=== PATIENT | female | born 1985 | race Caucasian/White ===

== ENCOUNTER 2017-08-30 01:22 | Inpatient (IN) | payer BC ==
[2017-08-30] MEDS: Lactated Ringers 1,000 ML IV SCH ×3 (01:43→03:55)
[2017-08-30] MEDS ORDERED: Bupivacaine 0.75%/D5W 2 ML Amp ONE ×2 (01:59→11:40)
[2017-08-30] MEDS ORDERED: Tranexamic Acid 1,000 MG in Sodium Chloride 0.9% 100 ML IV PRN (02:00)
[2017-08-30] MEDS ORDERED: Lidocaine 1% 30 ML SDV INJECT PRN (02:00)
[2017-08-30] MEDS ORDERED: Carboprost Tromethamine 250 MCG/1 ML Amp IM PRN (02:00)
[2017-08-30] MEDS ORDERED: Ondansetron 4 MG/2 ML SDV IV PRN (02:00)
[2017-08-30] MEDS ORDERED: EPINEPHrine 1 MG/ML SDV ONE (02:00)
[2017-08-30] MEDS ORDERED: Sodium Chloride 0.9% 10 ML Syringe FLUSH PRN (02:00)
[2017-08-30] MEDS ORDERED: Acetaminophen 325 MG Tab PO PRN (02:00)
[2017-08-30] MEDS ORDERED: Methylergonovine 0.2 MG/1 ML Amp IM PRN (02:00)
[2017-08-30] MEDS ORDERED: Lactated Ringers 500 ML IV ONE (02:00)
[2017-08-30] MEDS ORDERED: Misoprostol 400 MCG (4 X 100 MCG TAB) RECTAL PRN (02:00)
[2017-08-30] MEDS ORDERED: fentaNYL 100 MCG/2 ML SDV ONE (02:00)
[2017-08-30] MEDS ORDERED: Oxytocin/Normal Saline 30 UNIT/500 ML BAG IV SCH (02:15)
--- NOTE | 2017-08-30 02:59 | PCM.PRNOTE ---
- Free Text/Narrative Note: Requested to provide analgesia to full term patient in severe pain with advanced dilation. Upon entering the room, patient is supine in bed complaining of severe abdominal/pelvic pain and discomfort. Procedure was discussed with patient including adverse outcomes and expectations. Pt consented to analgesia, SAB/IT. Pt placed into a sitting position. Landmarks for SAB/IT were identified and marked. Hands were washed and appropriate PPE was applied. Back was prepped with betadine x3. A sterile, transparent, fenestrated drape was applied. Excess betadine was removed. Using 3 mL of a 1% lidocaine solution, a skin wheel was placed at the L3/L4 interspace. A 24 ga ( 4 inch) Pencan spinal needle was inserted until positive for CSF. Negative for heme or paresthesias. Injected fentanyl 20 mcg, sufentanil 10 mcg, and 9 mg of a 0.75% bupivacaine solution with an epi wash. Pt was placed left lateral position for approximately 20 minutes. There were zero complications or adverse outcomes during IT. Will continue to monitor. Procedure Date & Time: 08/30/17 [id number]
[2017-08-30] MEDS ORDERED: Ibuprofen 800 MG Tab PO PRN (03:28)
[2017-08-30] MEDS ORDERED: Benzocaine/Menthol 20%-0.5% Spray 56 GM Canister TOP PRN ×2 (03:29→05:01)
[2017-08-30] MEDS ORDERED: Measles, Mumps & Rubella Vaccine 0.5 ML SDV SUBCUT ONE (05:01)
[2017-08-30] MEDS ORDERED: ceFAZolin 2 GM in Premix Bag 1 BAG IV ONE (05:30)
--- NOTE | 2017-08-30 06:44 | HP ---
CHIEF COMPLAINT: Regular contractions, believe she is in labor. HISTORY OF PRESENT ILLNESS: The patient is a 31-year-old, 2, para 1-0-0- 1, who reports increased force and frequency of contractions throughout the evening and shortly after midnight decided that she needed to come into the hospital for labor, had been 3.5 cm dilated in the office today. She reports contractions started about that time and just steadily worsened into the evening. No leakage of fluid or vaginal bleeding. movement has been good. Denies any new concerns or problems. OBSTETRICAL HISTORY: A 39 and 4/7 weeks' gestation based on the last menstrual period of 11/26/2016 and a working due date of 09/02/2017. These dates are consistent with her 21-week and 35-week ultrasounds. The anatomy ultrasound was overall normal with posterior placenta. A 35-week ultrasound was done for size, and at that time, PATRICIA of 12.71, estimated weight 3008 g, 85th percentile for weight. Prior delivered on 07/18/2013, 40 weeks 4 days' gestation, female , spontaneously, named Gila, her weight 3204 g, under epidural anesthesia after 8 hours of labor, pushed for about 45 minutes. Reports labor went quickly after artificial rupture of membranes. The patient had been 6 cm dilated at her clinic visit earlier that day and was sent over to the hospital. Delivery was at [facility] and the provider was nurse city planning aide, first named, Trixie. LABORATORY DATA: Blood type A positive. Antibody screen negative. Rubella nonimmune. Syphilis serology nonreactive. Hepatitis B negative. HIV negative. Gonorrhea and Chlamydia negative. Thyroid 1.39. Hepatitis C nonreactive. Wet prep positive for clue cells and treated with metronidazole. One-hour glucose tolerance test of 129. Quad screen declined. She is group B strep negative. PAST MEDICAL HISTORY: Chickenpox as a child. Puberty at age 15 with menses every 30 to 35 days and flow of 6 days. PAST SURGICAL HISTORY: Laparoscopic appendectomy in August of 2013. FAMILY HISTORY: Father with hypertension. Maternal grandfather with lung cancer and reports that he was a smoker at a young age, but he quit 10 years prior to his diagnosis. Paternal grandmother has Alzheimer's. Paternal grandfather has heart disease. There are cousins who are twins, and the great grandfather is a twin as well. Otherwise, family history is negative, specifically negative for anesthesia problems, bleeding or clotting disorders, cystic fibrosis, defects, and seizures. SOCIAL HISTORY: The patient is technically single. 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 Has 1 daughter named Gila. They do not have any pets. Father of this baby is, Lenny Gonzalez. He is a fernandes and reportedly healthy. This is the new father of the baby than her first daughter. MEDICATIONS: 1. vitamin 1 daily. 2. Iron 325 mg twice daily. ALLERGIES: No known drug allergies. REVIEW OF SYSTEMS: Denies any headaches, blurry vision, chest pain, shortness of breath, fever, chills, nausea, vomiting, diarrhea, constipation. No other acute concerns. PHYSICAL EXAMINATION: General: Healthy, well-appearing 31-year-old female, now status post intrathecal that was performed just before I came in the room. Vital Signs: Initial blood pressure 114/79, pulse of 67, afebrile, respiratory rate normal. HEENT: Grossly unremarkable. Neck: Supple without adenopathy. Heart: Regular without murmur. Lungs: Clear to auscultation bilaterally. Abdomen: Soft and nontender. Pelvic: [place] shows contractions approximately every 2 minutes. heart rate is a baseline of 125 beats per minute at baseline. Moderate akcw-gx-aiol variability with accelerations noted. Cervical exam per nursing staff is 8 cm dilated, 90% effaced, -1 station with a bulging bag of water that was intact. Extremities: Trace edema bilaterally. LABORATORY DATA: Hemoglobin 12.7 and platelets 167. ASSESSMENT: 1. A 39 and 4/7 weeks' intrauterine based on last menstrual period. 2. 2, para 1-0-0-1. 3. Blood type A positive, rubella nonimmune, group B streptococcus negative. 4. Anemia of . 5. History of bacterial vaginosis in the first trimester. PLAN: The patient is comfortable with her intrathecal at this time. Anticipate that she will continue to progress nicely through labor and hopefully be able to labor down and reduce the amount of time that she will need to spend pushing. Expectant management for now. We can also perform artificial rupture of membranes if needed. The patient's questions have been answered. [facility] /[id number]
--- NOTE | 2017-08-30 08:34 | DEL ---
DATE: 08/30/2017 PRE-PROCEDURE DIAGNOSES: 1. A 39 and 4/7 weeks' intrauterine by last menstrual period. 2. Blood type A positive, rubella nonimmune, group B Streptococcus negative. 3. Anemia of . 4. bradycardia post intrathecal. POST-PROCEDURE DIAGNOSES: 1. A 39 and 4/7 weeks' intrauterine by last menstrual period. 2. Blood type A positive, rubella nonimmune, group B Streptococcus negative. 3. Anemia of . 4. bradycardia post intrathecal. 5. Successful vacuum-assisted vaginal delivery of a viable male . 6. Status post episiotomy with fourth-degree extension and repair. 7. Delivery of macrosomic infant. PROCEDURE PERFORMED: High vacuum-assisted vaginal delivery with likely second- degree episiotomy with fourth-degree extension, requiring repair. BRIEF COURSE: A 31-year-old female with the above-listed diagnoses, had presented to the hospital having had contractions essentially throughout the afternoon and evening that were stronger and closer together. She was 8 cm dilated, 90% effaced, and -1 station upon presentation, had an excellent category 1 monitoring strip erick every minute and a half to two minutes. She had an intrathecal placed and had her pain very well controlled and was resting on her left side. Blood pressures were doing pretty well after the intrathecal with last noted blood pressure 111/71 and then the baby developed deceleration down into the 90s with continued contractions and deceleration eventually trended down to the 60s. At which time, she was complete and had spontaneous rupture of membranes. I was called to the room, and immediately, we set the patient up for delivery and had her start pushing. The vacuum was also called for because pushing efforts were not going to be sufficient to deliver the baby quick enough given the heart rate staying down in the 60s. Operating room crew was also called in, and the patient quickly consented for potential emergency section because of the distress without known cause. As soon as the patient was set up for vacuum, it had been explained to her that she would have increased risk of an injury to her and the baby including vaginal lacerations and tears, increased risk of infection, increased risk of scalp lacerations and other complications for the baby, increased risk of shoulder dystocia, and further need for emergency delivery. She agreed to proceed and at that time, vacuum-assisted delivery was felt to be the most efficient. The bladder had last been emptied shortly after arrival at the hospital. Therefore, a Chase indwelling catheter was quickly placed, and normal mushroom cap vacuum was applied and used for 1 contraction, however, had leakage of the seal. Therefore, a different vacuum was called for, and contractions seemed to be spacing for whatever reasons. The Pitocin was turned on at 6, and the low-profile vacuum was applied. This was used through 3 contractions and ultimately on for successful vaginal delivery between pushes. Baby was confirmed to be in OA position prior to application of the vacuum. The pressure was held in the yellow zone between contractions and in the green zone during pulls with the manometry being used to make sure that we avoided being in the red zone. With those pulls and contractions after delivery of the head, the shoulders were not forthcoming. The patient was placed in McRobert position as I continued to attempt and locate the posterior arm for delivery. We had performed a couple of attempts at corkscrew maneuvers. Nurse was also applying suprapubic pressure, and we both agreed that the baby's shoulders were in transverse position despite the head having been delivered in the RICHARDSON position. Eventually after the episiotomy was cut, we were able to continue to attempt the suprapubic pressure as well as internal maneuvers, ultimately delivering the anterior shoulder and then the posterior shoulder followed by the remainder of the . PROCEDURE DETAILS: The patient in dorsal lithotomy position, delivered a viable male over a second-degree episiotomy with fourth-degree extension. Three- vessel umbilical cord was singly clamped and then cut and baby taken over to the warmer for immediate resuscitation. Nurse collected cord blood sample while I attended to the baby initially, and once we had spontaneous respirations and color was returning, the baby was left in the care of the nurse practice assistant and another OB nurse while I returned to the perineum and the placenta was delivered, inspected, and intact. This was performed by gentle cord traction and concomitant uterine massage. The labia and vagina were inspected and fourth- degree laceration confirmed. Laceration repaired by using 3-0 Vicryl and placing a running stitch through the rectal to a posterior vaginal mucosa all the way to the keratinized skin level. I then placed 2 stitches through the bulbocavernosus muscle to bring that together and then used 2 interrupted stitches in the rectal sphincter muscle to reapproximate those in the midline. The vaginal repair was then closed as a second degree in the usual fashion with a 3-0 Vicryl, and this came together nicely. There was also an associated left-sided labial skin split that seemed to follow the line right between the keratinized and the mucosal tissue. This was closed with a running subcuticular stitch of 4-0 Monocryl and it came together with good cosmetic result, and the patient tolerated all of this well without any additional lidocaine. Chase catheter was left in place during this time as it had been placed with anticipation of needing to proceed to emergency . Bleeding had been well controlled. The patient tolerated the procedure well as her intrathecal had only been placed 15 minutes or so prior to delivery. Total time the baby's heart tones were down in the 90s and then 60s was approximately 15 minutes. Total vacuum application time approximately 5 minutes pulling through a total of about 4 contractions. COMPLICATIONS: Shoulder dystocia with fourth-degree laceration requiring repair, actually managed quite well with excellent nursing available. Baby resuscitation was well managed by nursing staff, RADIO STATION AUDIO ENGINEER and Dr. Stanley's arrival within the first couple of minutes of life to assist with the baby's cares. ESTIMATED BLOOD LOSS: 500 mL. OTHER CONCERNS: None. [facility] /[id number]
[2017-08-30] MEDS ORDERED: fentaNYL 100 MCG/2 ML SDV ITHECAL ONE (11:40)
[2017-08-30] MEDS: Prenatal Multivitamin with Calcium/Folic Acid/Iron Tab PO SCH (12:10)
[2017-08-30] MEDS: Ibuprofen 800 MG Tab PO PRN ×2 (12:11→19:39)
[2017-08-30] MEDS: Docusate Sodium 100 MG Cap PO PRN ×2 (12:11→19:38)
[2017-08-30] MEDS: Acetaminophen/HYDROcodone 325-10 MG Tab PO PRN ×3 (15:27→23:47)
[2017-08-30] MEDS: Simethicone 80 MG Tab.Chew PO PRN (20:50)
[2017-08-31] MEDS: Acetaminophen/HYDROcodone 325-10 MG Tab PO PRN ×4 (04:02→22:41)
[2017-08-31] MEDS: Docusate Sodium 100 MG Cap PO PRN ×2 (08:20→22:39)
[2017-08-31] MEDS: Simethicone 80 MG Tab.Chew PO PRN ×2 (08:20→22:39)
[2017-08-31] MEDS: Prenatal Multivitamin with Calcium/Folic Acid/Iron Tab PO SCH (08:20)
[2017-08-31] MEDS: Ibuprofen 800 MG Tab PO PRN ×2 (13:32→22:42)
[2017-09-01] MEDS: Ibuprofen 800 MG Tab PO PRN (08:29)
[2017-09-01] MEDS: Simethicone 80 MG Tab.Chew PO PRN (08:29)
[2017-09-01] MEDS: Prenatal Multivitamin with Calcium/Folic Acid/Iron Tab PO SCH (08:29)
[2017-09-01] MEDS: Docusate Sodium 100 MG Cap PO PRN (08:30)
--- NOTE | 2017-09-01 11:05 | DISCH ---
ADMIT DIAGNOSES: 1. A 39 and 4/7 weeks' intrauterine based on last menstrual period of 11/26/2017. 2. 2, para 1-0-0-1. 3. Blood type A positive. Rubella not immune, GBS negative. 4. Anemia of . 5. History of bacterial vaginosis in the first trimester, treated. DISCHARGE DIAGNOSES: 1. A 39 and 4/7 weeks' intrauterine based on last menstrual period of 11/26/2017, delivered via spontaneous vaginal delivery. 2. 2, para 2-0-0-2. 3. Blood type A positive. Rubella not immune, GBS negative. 4. Anemia of , last hemoglobin 10.0. 5. History of bacterial vaginosis in the first trimester, treated. 6. bradycardia, post intrathecal. 7. Successful high vacuum-assisted vaginal delivery of a viable male . 8. Status post episiotomy with fourth degree extension, repaired. 9. Delivery of macrosomic infant. 10.Two minute shoulder dystocia BRIEF HISTORY: The patient is a 31-year-old female, now G2, P2-0-0-2, admitted at 39 and 4/7 weeks' gestation due to regular contractions. Her spontaneous labor was actively managed, and she had a successful vacuum-assisted vaginal delivery that was complicated by a 2 minute shoulder dystocia requiring an episiotomy. This episiotomy did undergo extension into a fourth degree laceration that was repaired. Please see delivery note for more details. HOSPITAL COURSE: Hospital course has been good. Nursing staff and mother have not raised any major concerns. day 1, please see progress note. day 2, the date of discharge, the patient is tolerating a general diet and ambulating without difficulty. She feels that her pain is well controlled on current medications, and feels that she can manage with Tylenol and Ibuprofen at home. She denies fevers or chills, lightheadedness or dizziness, headaches or blurry vision, shortness of breath or chest pain, nausea or vomiting, sharp abdominal pains, difficulty with urination, or erythema or tenderness in any extremity. She does note some lower extremity edema bilaterally. She is passing gas, but has not yet had a bowel movement. She notes mild lochia that continues to improve and is not foul smelling. DISCHARGE CONDITION: Good. DISCHARGE PHYSICAL EXAMINATION: Vital Signs: Temperature 98.2 Fahrenheit, heart rate 88, blood pressure 113/79, respiratory rate 18, and oxygen saturation 100% on room air. General: Alert, pleasant, and in no acute distress. Heart: Regular rate and rhythm. S1 and S2. Lungs: Clear to auscultation bilaterally with normal respiratory effort. No wheezes, rhonchi, or rales appreciated. Abdomen: Soft, nondistended, and nontender to palpation. The uterus is firm and palpated at the level of the umbilicus. Neurologic: No obvious neurologic deficits. Extremities: 1+ pitting edema in the lower extremities bilaterally. No edema in the upper extremities. No erythema or tenderness noted in any extremity. Skin: Warm, dry, and well perfused. LABORATORY DATA: Last drawn on 08/31/2017, the day prior to discharge, white blood cells 14.2, hemoglobin 10.0, platelets 165. DISPOSITION: Home, self-care. FOLLOWUP: The patient was instructed to schedule a 2-week followup appointment for herself at her baby's appointment with Dr. Briceno in 2 days from now on 09/03/2017. DISCHARGE INSTRUCTIONS: Routine instructions were provided to the patient, including, but not limited to, 1. Diet as tolerated. 2. Activity: No lifting more than 20 pounds. It was stressed to the patient that she should refrain from sit-ups, any straining, as well as pelvic rest for at least the next 6 weeks with immediate return to fertility. The patient was instructed to keep her fourth degree laceration repair as clean as possible. 3. Reasons to return or go to the emergency room were discussed with the patient in detail including but not limited to temperature greater than 100.4 Fahrenheit, red hot tender breast, increasing vaginal bleeding or pain, increasing pain, drainage, or redness around her laceration repair or foul smelling discharge. DISCHARGE MEDICATIONS: 1. Lsvf-wcf-utysksz Tylenol or ibuprofen as needed for pain. 2. Colace x6 weeks. 3. vitamins x6 weeks. 4. Breast pump The patient expressed understanding and is in agreement with the above treatment plan, and all of her questions were answered. The history, physical, assessment and plan are per Dr. Rice, and this note is being scribed for Dr. Rice. [facility] /[id number] HUA
[2017-09-01] MEDS: Acetaminophen/HYDROcodone 325-10 MG Tab PO PRN (11:11)
== END 2017-09-01 11:35 | disposition home or self-care (01) | DRG 560 ==
LOC: DL.OBCHECK 01:22 → DL.OB 02:00 → OBSVTOIN 02:38 → DL.OB 02:38
PROVIDERS: ADMIT Family Medicine; ATTEND Family Medicine
PROC: 10D07Z6 Extraction of Products of Conception, Vacuum, Via Natural or Artificial Opening (ICD-10-PCS; principal; 2017-08-30)
PROC: 6A550ZT Pheresis of Cord Blood Stem Cells, Single (ICD-10-PCS; 2017-08-30)
PROC: 0W8NXZZ Division of Female Perineum, External Approach (ICD-10-PCS; 2017-08-30)
PROC: 0DQP0ZZ Repair Rectum, Open Approach (ICD-10-PCS; 2017-08-30)
PROC: 0UQMXZZ Repair Vulva, External Approach (ICD-10-PCS; 2017-08-30)
PROC: 00HU33Z Insertion of Infusion Device into Spinal Canal, Percutaneous Approach (ICD-10-PCS; 2017-08-30)
PROC: 3E0R3BZ Introduction of Anesthetic Agent into Spinal Canal, Percutaneous Approach (ICD-10-PCS; 2017-08-30)
DX: O66.0 Obstructed labor due to shoulder dystocia (principal); O70.3 Fourth degree perineal laceration during delivery; O99.02 Anemia complicating childbirth; D64.89 Other specified anemias; O76 Abnormality in fetal heart rate and rhythm complicating labor and delivery; O36.63X0 Maternal care for excessive fetal growth, third trimester, not applicable or unspecified; Z3A.39 39 weeks gestation of pregnancy; Z37.0 Single live birth
CPT/HCPCS: 36415; 51701; 51702; 59300; 59409; 85027; 90707; A9270-GY; J0690; J2590; J3010; J7120

== ENCOUNTER 2020-05-24 08:15 | Inpatient (IN) | payer BC ==
[~2020-05-24 08:15] MED LIST: Acetaminophen 325 MG Tab PO PRN; Carboprost Tromethamine 250 MCG/1 ML Amp IM PRN; Lactated Ringers 1,000 ML IV ONE; Lactated Ringers 500 ML IV SCH; Lidocaine 1% 30 ML SDV INJECT PRN; Methylergonovine 0.2 MG/1 ML Amp IM PRN; Misoprostol 400 MCG (4 X 100 MCG TAB) RECTAL PRN; Misoprostol 50 MCG (1/2 of 100 MCG) Tab PO PRN; Naloxone 2 MG/2 ML Syringe IVPUSH PRN; Ondansetron 4 MG/2 ML SDV IVPUSH PRN; Oxytocin/Normal Saline 30 UNIT/500 ML BAG IV SCH; Promethazine 25 MG/ML SDV IM PRN; Sodium Chloride 0.9% 10 ML Syringe FLUSH PRN; Tranexamic Acid 1,000 MG in Sodium Chloride 0.9% 100 ML IV PRN; ePHEDrine 50 MG/ML SDV IVPUSH PRN; fentaNYL 100 MCG/2 ML SDV IVPUSH PRN
[2020-05-24] MEDS ORDERED: Misoprostol 25 MCG (1/4 of 100 MCG) Tab VAG PRN (13:04)
[2020-05-24] MEDS: Lactated Ringers 1,000 ML IV SCH ×2 (18:42→21:51)
[2020-05-24] MEDS ORDERED: Sodium Bicarbonate 4.2% 2.5 MEQ/5 ML SDV ONE ×2 (21:48→21:49)
[2020-05-24] MEDS ORDERED: fentaNYL 100 MCG/2 ML SDV ONE (21:48)
[2020-05-24] MEDS ORDERED: EPINEPHrine 1 MG/1 ML Amp ONE ×2 (21:48→21:49)
[2020-05-24] MEDS ORDERED: fentaNYL 100 MCG/2 ML SDV ITHECAL ONE (21:49)
[2020-05-24] MEDS ORDERED: Sodium Chloride 0.9% 20 ML SDV IV ONE (21:49)
--- NOTE | 2020-05-24 22:15 | PCM.SN.2 ---
- Free Text/Narrative Note: Intrathecal. Sitting position, sterile prep and drape. 1% lidocaine w bicarb for skinwheal to L3 L4 interspace. Introducer, 24 ga pencan x 1. Pos CSF, neg heme, neg parasthesia. 1:1000 pf epi wash, 20 mcg pf sufenta, 30 mcg pf fentanyl, 0.4 ml pf NS and 6 mg of 0.75% pf marcaine injected after CSF aspiration. Pt to L lateral position. Procedure time 2150 to 2220
[2020-05-24] MEDS ORDERED: Zolpidem 5 MG Tab PO PRN (23:29)
[2020-05-24] MEDS ORDERED: Ibuprofen 800 MG Tab PO PRN (23:29)
[2020-05-24] MEDS ORDERED: Oxytocin 10 Units/1 ML SDV IM PRN (23:29)
[2020-05-24] MEDS ORDERED: Benzocaine/Menthol 20%-0.5% Spray 56 GM Canister TOP PRN (23:29)
[2020-05-24] MEDS ORDERED: Docusate Sodium 100 MG Cap PO PRN (23:29)
[2020-05-24] MEDS ORDERED: Simethicone 80 MG Tab.Chew PO PRN (23:29)
--- NOTE | 2020-05-25 00:59 | DEL ---
DATE: 05/24/2020 PREPROCEDURE DIAGNOSES: 1. 38-1/7 weeks' intrauterine by last menstrual period. 2. 3, para 2-0-0-2. 3. History of fourth-degree laceration. 4. History of macrosomic infant. 5. History of vacuum delivery, history of shoulder dystocia. 6. Abnormal 1-hour glucose tolerance test, normal 3-hour test. 7. Blood type A positive, rubella immune, and group B strep negative. POSTPROCEDURE DIAGNOSES: 1. 38-1/7 weeks' intrauterine by last menstrual period. 2. 3, para 3-0-0-3. 3. History of fourth-degree laceration. 4. History of macrosomic . 5. History of vacuum delivery, history of shoulder dystocia. 6. Abnormal 1-hour glucose tolerance test, normal 3-hour test. 7. Blood type A positive, rubella immune, and group B strep negative. 8. Post uncomplicated spontaneous vaginal delivery. BRIEF HISTORY: A 34-year-old female with the above-listed diagnoses presented to the hospital this morning for planned induction of labor because of the above- listed risk factors. Throughout the , we had discussed and were debating whether the best option would be for primary low transverse section or to proceed with attempted vaginal delivery hoping to not retear through her fourth-degree scar. The patient's last delivery was quite traumatic with a high vacuum delivery of a baby weighing over 9 pounds and a 2-minute shoulder dystocia requiring episiotomy, which extended to a fourth degree. This was repaired very well and she has not had any problems with pain, fecal incontinence, etc., and so keeping that repair intact was very important. We have been monitoring the growth during the , and at this time, baby is measuring appropriate for size at around 7-1/2 pounds just over the size of her first born child and felt to be growing well and mature enough to be born at 38 weeks rather than waiting until 39 or 40 weeks. I had consulted with one of my physician colleagues, who agreed that delivery via induction for maternal benefit and to avoid primary section was prudent. The patient had 1 dose of Cytotec 50 followed by 25 mcg, which got her to a Ulloa score of 7. After that, Pitocin was started, and after about 4 hours of active labor, she went on to complete with spontaneous rupture of membranes. The mother needed to push only through about 4 contractions and we delivered the placenta about 6 minutes later. DETAILS: With the patient in dorsal lithotomy position, she delivered a viable female infant in the OA position over intact perineum. After delivery of the head, baby presented the right hand and shoulder followed by the left posterior shoulder and baby maneuvered out gently thereafter. Baby was dried, stimulated, and had a strong lusty cry. Therefore, was placed upon mother's abdomen and nurse bulb suctioned as needed. Three-vessel umbilical cord was noted to have 2 true knots entwined together making more of a pretzel shape and 3-vessel umbilical cord was then doubly clamped and cut. Cord blood sample was obtained and placenta delivered by gentle cord traction and concomitant uterine massage. Placenta then inspected and intact. Labia, vagina, and cervix were inspected. There were some superficial abrasions that were hemostatic and no stitches were required. COMPLICATIONS: None. ESTIMATED BLOOD LOSS: 200 mL. DISPOSITION: Mother and baby to stay in the room and initiate breast-feeding at this time. FINDINGS: Viable female infant weighing 3690g, Apgars 9 & 9. [facility] /[id number] HUA
[2020-05-25] MEDS ORDERED: Ferrous Sulfate 325 MG Tab PO SCH (08:00)
--- NOTE | 2020-05-25 08:50 | PN ---
DATE: 05/25/2020 SUBJECTIVE: Postvaginal delivery day #1. The patient reports that she is feeling great, especially compared to her last delivery. No chest pain, no shortness of breath. Ambulating, tolerating regular diet, voiding without difficulties, not yet had a regular bowel movement. , and that seems to be going fairly well. Bleeding has been pretty minimal, and she denies any other problems or acute concerns. Baby happens to have a cardiac arrhythmia, and we are checking further into that with Pediatric Cardiology, and baby may need to be transferred or just monitored further. Once that is found out, we will decide if mother needs to be discharged today to go with her baby or if they will stay here at the hospital. OBJECTIVE: General: Pleasant, well-appearing, 34-year-old female, in no acute distress. Vital Signs: Temperature is 98.1, pulse 68, blood pressure 105/72, respiratory rate of 18. Heart: Regular, without murmur. Lungs: Clear to auscultation bilaterally. Abdomen: Soft and nontender. Fundus firm and at the umbilicus. Extremities: No edema, erythema, or tenderness noted. LABORATORY DATA: This morning has not yet been completed. ASSESSMENT: 1. Post vaginal delivery day #1, spontaneous vaginal delivery without repair. 2. Delivery at 38-1/7 weeks gestation after induction with Cytotec and Pitocin. 3. History of fourth-degree laceration. 4. History of macrosomia with vacuum-assisted delivery and shoulder dystocia. 5. Mild thrombocytopenia. 6. Blood type A positive, rubella immune, group B strep negative. PLAN: Anticipate continued normal post vaginal delivery cares. Keep an eye on the platelets and make sure that those are improving. The patient is doing well from a medical standpoint and could be discharged today if necessary. Otherwise, anticipate discharge home tomorrow. [facility] /[id number]
[2020-05-25] MEDS ORDERED: Prenatal Multivitamin with Calcium/Folic Acid/Iron Tab PO SCH (09:00)
[2020-05-25] MEDS ORDERED: Acetaminophen 325 MG Tab PO PRN (16:12)
[2020-05-25] MEDS ORDERED: Methylergonovine 0.2 MG/1 ML Amp IM PRN (16:12)
[2020-05-25] MEDS ORDERED: Tranexamic Acid 1,000 MG in Sodium Chloride 0.9% 100 ML IV PRN (16:12)
[2020-05-25] MEDS ORDERED: Carboprost Tromethamine 250 MCG/1 ML Amp IM PRN (16:12)
[2020-05-25] MEDS ORDERED: diphenhydrAMINE 50 MG/ML SDV IVPUSH PRN (16:12)
[2020-05-25] MEDS ORDERED: Misoprostol 400 MCG (4 X 100 MCG TAB) RECTAL PRN (16:12)
[2020-05-25] MEDS ORDERED: ePHEDrine 50 MG/ML SDV IVPUSH PRN (16:12)
[2020-05-25] MEDS ORDERED: Acetaminophen/oxyCODONE 325-5 MG Tab PO PRN ×2 (16:12)
[2020-05-25] MEDS ORDERED: Ibuprofen 800 MG Tab PO PRN (16:12)
[2020-05-25] MEDS ORDERED: Ondansetron 4 MG/2 ML SDV IVPUSH PRN (16:12)
[2020-05-25] MEDS ORDERED: Naloxone 2 MG/2 ML Syringe IVPUSH PRN (16:12)
[2020-05-25] MEDS ORDERED: Docusate Sodium 100 MG Cap PO PRN (16:12)
[2020-05-25] MEDS ORDERED: Lactated Ringers 1,000 ML IV SCH (16:15)
[2020-05-25] MEDS ORDERED: Ketorolac 30 MG/ML SDV IVPUSH SCH (16:15)
[2020-05-25] MEDS ORDERED: Simethicone 80 MG Tab.Chew PO SCH (17:00)
[2020-05-26] MEDS ORDERED: Prenatal Multivitamin with Calcium/Folic Acid/Iron Tab PO SCH (09:00)
--- NOTE | 2020-05-27 23:56 | HP ---
Please see physical sent over from the clinic at [facility] on 05/19/2020. No updates were necessary, and the plan is unchanged. [facility] /[id number]
--- NOTE | 2020-05-28 01:10 | DISCH ---
ADMITTING DIAGNOSES: 1. 38 and 1/7 week intrauterine by last menstrual period. 2. 3, para 2-0-0-2. 3. History of fourth-degree laceration. 4. History of delivery of macrosomic via vacuum-assisted vaginal delivery complicated by shoulder dystocia. 5. Blood type A positive, rubella immune, group B strep negative. DISCHARGE DIAGNOSES: 1. 38 and 1/7 week intrauterine by last menstrual period. 2. 3, now para 3-0-0-3. 3. History of fourth-degree laceration. 4. History of delivery of macrosomic via vacuum-assisted vaginal delivery complicated by shoulder dystocia. 5. Blood type A positive, rubella immune, group B strep negative. 6. Status post uncomplicated spontaneous vaginal delivery. 7. Transient thrombocytopenia. BRIEF HISTORY: A 34-year-old patient with the above-listed diagnoses, brought into the hospital for planned induction at 38 weeks secondary to the fourth- degree laceration because of the complicated delivery and the patient's desire to avoid primary section and also decreased risk of re-tear through the fourth-degree repair. See admission history and physical for full details. HOSPITAL COURSE: Hospital course is good. Successful induction of labor with Cytotec and Pitocin with intrathecal for pain management. [place] she was in good strong active labor for about 4 hours, only pushed for about 12 minutes and stage III was only about 6 minutes. Delivery went very well. She had some superficial abrasions, but no lacerations and did not require any stitches. She delivered a female infant with score of 9 and 9, weighing 3690 g, 8 pounds 2 ounces, and she has been meeting all of her discharge criteria, ambulating, tolerating regular diet, voiding and stooling without difficulties. No chest pain, no shortness of breath, and bleeding has been pretty minimal. Despite a slight decrease in her platelets, it did resolve prior to discharge. DISCHARGE CONDITION: Good. PHYSICAL EXAMINATION: Vital Signs: Temperature is 98.6, pulse 103, blood pressure 117/64, respiratory rate of 18, and O2 saturations 94% on room air. Heart: Regular without murmur. Lungs: Clear to auscultation bilaterally. Abdomen: Soft, nontender. Fundus is firm and at the umbilicus. Extremities: No edema, erythema, or tenderness noted. LABORATORY DATA: Admission hemoglobin 13.6, discharge 13.3. Admission platelets 124, discharge 177. MEDICATIONS: vitamin 1 p.o. daily, ibuprofen 800 mg every 8 hours as needed for pain, Tylenol 650 mg every 6 hours as needed for pain. DISPOSITION: Home with family. DISCHARGE INSTRUCTIONS: Routine post-vaginal delivery care instructions for mother were provided. She understands to call or return if she has any foul-smelling drainage, discharge, delayed bleeding, passage of clots, development of preeclampsia symptoms or any other problems or concerns should arise. FOLLOWUP: She will be seen in the office for her 6-week visit. I will also be able to check on her as far as depression and other concerns go when she brings the baby in for the 2-day and 2-week well checks. She was comfortable with this plan and all of her questions were answered. [facility] [place] /[id number]
== END 2020-05-26 10:40 | disposition home or self-care (01) | DRG 560 ==
LOC: DL.OBCHECK 08:15 → DL.OB 08:57 → OBSVTOIN 23:05 → DL.OB 23:05
PROVIDERS: ADMIT Family Medicine; ATTEND Family Medicine
PROC: 10E0XZZ Delivery of Products of Conception, External Approach (ICD-10-PCS; principal; 2020-05-24)
PROC: 3E0P7VZ Introduction of Hormone into Female Reproductive, Via Natural or Artificial Opening (ICD-10-PCS; 2020-05-24)
PROC: 3E033VJ Introduction of Other Hormone into Peripheral Vein, Percutaneous Approach (ICD-10-PCS; 2020-05-24)
PROC: 3E0R3BZ Introduction of Anesthetic Agent into Spinal Canal, Percutaneous Approach (ICD-10-PCS; 2020-05-24)
PROC: 00HU33Z Insertion of Infusion Device into Spinal Canal, Percutaneous Approach (ICD-10-PCS; 2020-05-24)
DX: O99.12 Other diseases of the blood and blood-forming organs and certain disorders involving the immune mechanism complicating childbirth (principal); D69.6 Thrombocytopenia, unspecified; Z37.0 Single live birth; Z3A.38 38 weeks gestation of pregnancy; Z20.822 Contact with and (suspected) exposure to COVID-19; Z28.21 Immunization not carried out because of patient refusal
CPT/HCPCS: 01967; 36415; 59409; 85027; A9270-GY; J0171; J2405; J2590; J3010; J7120; U0002

== ENCOUNTER 2023-07-27 18:41 | Observation (INO) | payer BC ==
[2023-07-27] MEDS ORDERED: Tranexamic Acid 1,000 MG in Sodium Chloride 0.9% 100 ML IV PRN (18:43)
[2023-07-27] MEDS ORDERED: Acetaminophen 325 MG Tab PO PRN (18:43)
[2023-07-27] MEDS ORDERED: Carboprost Tromethamine 250 MCG/1 ML Amp IM PRN (18:43)
[2023-07-27] MEDS ORDERED: Misoprostol 400 MCG (4 X 100 MCG TAB) RECTAL PRN (18:43)
[2023-07-27] MEDS ORDERED: Ondansetron 4 MG/2 ML SDV IVPUSH PRN (18:43)
[2023-07-27] MEDS ORDERED: Methylergonovine 0.2 MG/1 ML Amp IM PRN (18:43)
[2023-07-27] MEDS ORDERED: Sodium Chloride 0.9% 10 ML Syringe FLUSH PRN ×2 (18:43→19:20)
[2023-07-27] MEDS ORDERED: Lactated Ringers 1,000 ML IV ONE (18:43)
[2023-07-27] MEDS ORDERED: fentaNYL 100 MCG/2 ML SDV IVPUSH PRN (19:17)
[2023-07-27 19:22] LABS: HEMATOCRIT 38.4 % (37.0-47.0); HEMOGLOBIN 12.6 g/dL (12.0-16.0); MEAN CORPUSCULAR HEMOGLOBIN 27.6 pg (27.0-34.0); MEAN CORPUSCULAR HGB CONC 32.8 g/dL (33.0-35.0); MEAN CORPUSCULAR VOLUME 84.2 fL (80-100); RED BLOOD CELL COUNT 4.56 10^6/uL (4.2-5.4); WHITE BLOOD CELL COUNT,WBC 8.3 10^3/uL (5.0-10.0)
[2023-07-27] MEDS ORDERED: Oxytocin/Normal Saline 30 UNIT/500 ML BAG IV SCH (19:30)
[2023-07-27] MEDS: Misoprostol 50 MCG (1/2 of 100 MCG) Tab VAG SCH (19:57)
[2023-07-28] MEDS: Misoprostol 25 MCG (1/4 of 100 MCG) Tab VAG PRN (00:04)
[2023-07-28] MEDS: Lactated Ringers 1,000 ML IV SCH (02:30)
[2023-07-28] MEDS: Terbutaline 1 MG/ML SDV SUBCUT ONE (04:03)
[2023-07-28] MEDS: Mineral Oil 30 ML UD Cup ONE (04:03)
[2023-07-28] MEDS ORDERED: fentaNYL 100 MCG/2 ML SDV ONE (05:40)
[2023-07-28] MEDS ORDERED: Bupivacaine 0.25% 10 ML SDV ONE (05:40)
[2023-07-28] MEDS ORDERED: Phenylephrine HCl In 0.9% NaCl 1 MG/10 ML Syringe IVPUSH PRN (06:05)
[2023-07-28] MEDS ORDERED: ePHEDrine 50 MG/ML SDV IVPUSH PRN (06:05)
[2023-07-28] MEDS ORDERED: Ropivacaine 200 MG in Premix Bag 1 BAG EPIDUR SCH (06:15)
[2023-07-28] MEDS: Oxytocin/Normal Saline 30 UNIT/500 ML BAG IV SCH (06:58)
[2023-07-28] MEDS ORDERED: Simethicone 80 MG Tab.Chew PO PRN (07:10)
[2023-07-28] MEDS ORDERED: Witch Hazel Medicated Pads 100/Jar TOP PRN (07:10)
[2023-07-28] MEDS ORDERED: Hydrocortisone 2.5% Crm 30 GM Tube TOP PRN (07:10)
[2023-07-28] MEDS ORDERED: Oxytocin 10 Units/1 ML SDV IM PRN (07:10)
[2023-07-28] MEDS ORDERED: Sodium Chloride 0.9% 10 ML Syringe FLUSH PRN (07:10)
[2023-07-28] MEDS: Docusate Sodium 100 MG Cap PO PRN (12:45)
[2023-07-28] MEDS: Benzocaine/Menthol 20%-0.5% Spray 78 GM Cannister TOP PRN (12:45)
[2023-07-28] MEDS: Prenatal Multivitamin with Calcium/Folic Acid/Iron Tab PO SCH (12:45)
[2023-07-28] MEDS: Ibuprofen 800 MG Tab PO PRN (12:45)
[2023-07-28] MEDS: Lidocaine 1% 30 ML SDV INJECT ONE (20:32)
[2023-07-29 06:25] LABS: HEMATOCRIT 35.3 % (37.0-47.0); HEMOGLOBIN 11.3 g/dL (12.0-16.0); MEAN CORPUSCULAR HEMOGLOBIN 27.6 pg (27.0-34.0); MEAN CORPUSCULAR VOLUME 86.3 fL (80-100); RED BLOOD CELL COUNT 4.09 10^6/uL (4.2-5.4); WHITE BLOOD CELL COUNT,WBC 8.7 10^3/uL (5.0-10.0)
[2023-07-29] MEDS: Measles, Mumps & Rubella Vaccine 0.5 ML SDV SUBCUT ONE ×2 (08:34→09:26)
== END 2023-07-29 09:00 | disposition home or self-care (01) ==
LOC: DL.OBCHECK 18:41 → DL.OB 18:57
PROVIDERS: ADMIT Family Medicine; ATTEND Family Medicine
DX: O24.420 Gestational diabetes mellitus in childbirth, diet controlled (principal); O09.523 Supervision of elderly multigravida, third trimester; Z37.0 Single live birth
CPT/HCPCS: 36415; 59409; 59514; 76805; 85027; 86850; 86900; 86901; 90471; 90707; A9270; J2590; J7120

== ENCOUNTER 2024-11-11 09:25 | Inpatient (IN) | payer BC ==
[2024-11-11] MEDS ORDERED: Sodium Chloride 0.9% 10 ML Syringe FLUSH PRN (10:20)
[2024-11-11] MEDS ORDERED: Misoprostol 25 MCG (1/4 of 100 MCG) Tab VAG PRN (10:20)
[2024-11-11] MEDS ORDERED: Carboprost Tromethamine 250 MCG/1 ML Amp IM PRN (10:20)
[2024-11-11] MEDS ORDERED: Oxytocin/Lactated Ringers 30 UNIT/500 ML BAG IV SCH (10:30)
[2024-11-11 10:56] LABS: PLATELET COUNT,PLT 195.0 10^3/uL (150-450); RED BLOOD CELL COUNT 4.31 10^6/uL (4.2-5.4); WHITE BLOOD CELL COUNT,WBC 8.1 10^3/uL (5.0-10.0)
[2024-11-11] MEDS: Lactated Ringers 1,000 ML IV SCH (11:37)
[2024-11-11] MEDS: Misoprostol 25 MCG (1/4 of 100 MCG) Tab VAG SCH (11:37)
[2024-11-11] MEDS: Penicillin G Potassium 5 MILLUNITS in Sodium Chloride 0.9% 100 ML IV ONE (11:45)
[2024-11-11] MEDS: Penicillin G Potassium 3 MILLUNITS in Sodium Chloride 0.9% 100 ML IV SCH (15:45)
[2024-11-11] MEDS: Oxytocin/Normal Saline 30 UNIT/500 ML BAG IV SCH (16:45)
[2024-11-11] MEDS ORDERED: ePHEDrine 50 MG/ML SDV IVPUSH PRN (18:00)
[2024-11-11] MEDS ORDERED: diphenhydrAMINE 50 MG/ML SDV IVPUSH PRN (18:00)
[2024-11-11] MEDS ORDERED: Lactated Ringers 1,000 ML IV SCH (18:00)
[2024-11-11] MEDS ORDERED: Oxytocin/Normal Saline 30 UNIT/500 ML BAG ONE (18:21)
[2024-11-11] MEDS: Lactated Ringers 1,000 ML IV ONE (19:21)
[2024-11-11] MEDS: Ketorolac 30 MG/ML SDV IVPUSH SCH (19:22)
[2024-11-11] MEDS ORDERED: ePHEDrine 50 MG/ML SDV ONE (19:23)
[2024-11-11] MEDS ORDERED: Ondansetron 4 MG/2 ML SDV ONE (19:23)
[2024-11-11] MEDS ORDERED: dexmedeTOMIDine HCl 200 MCG/2 ML SDV ONE (19:24)
[2024-11-12] MEDS: Acetaminophen/oxyCODONE 325-5 MG Tab PO PRN (00:24)
[2024-11-12] MEDS: Ketorolac 30 MG/ML SDV IVPUSH SCH (00:46)
[2024-11-12 05:52] LABS: PLATELET COUNT,PLT 165.0 10^3/uL (150-450); RED BLOOD CELL COUNT 3.95 10^6/uL (4.2-5.4); WHITE BLOOD CELL COUNT,WBC 9.6 10^3/uL (5.0-10.0)
[2024-11-12] MEDS: Prenatal Multivitamin with Calcium/Folic Acid/Iron Tab PO SCH (09:00)
[2024-11-12] MEDS: Measles, Mumps & Rubella Vaccine 0.5 ML SDV SUBCUT ONE (22:21)
[2024-11-13] MEDS: Lactated Ringers 1,000 ML IV ONE (03:44)
[2024-11-13 04:05] LABS: PLATELET COUNT,PLT 219.0 10^3/uL (150-450); RED BLOOD CELL COUNT 4.08 10^6/uL (4.2-5.4); WHITE BLOOD CELL COUNT,WBC 11.0 10^3/uL (5.0-10.0)
[2024-11-13 04:28] LABS: A/G RATIO 0.65; ALANINE AMINOTRANSFERASE,ALT 18.0 U/L (14-59); ASPARTATE AMNIOTRANSFERASE,AST 21.0 U/L (15-37); BILIRUBIN TOTAL 0.2 mg/dL (0.2-1.0); BLOOD UREA NITROGEN,BUN 6.0 mg/dL (7-18); CARBON DIOXIDE,CO2 22.0 mmol/L (21-32); CHLORIDE,CL 107.0 mmol/L (98-107); CREATININE 0.63 mg/dL (0.55-1.02); EST CRCL DRUG DOSING (CG) 103.53 mL/min; ESTIMATED GFR 116.0 mL/min (>=60); GLUCOSE RANDOM 101.0 mg/dL (70-99); POTASSIUM,K 4.2 mmol/L (3.5-5.1); PROTEIN TOTAL,TP 6.1 g/dL (6.4-8.2); SODIUM,NA 140.0 mmol/L (136-145)
[2024-11-13] MEDS: Ondansetron 4 MG/2 ML SDV IVPUSH PRN (04:35)
[2024-11-13] MEDS: Iopamidol 755 Mg/ML 100 ML Bottle IVPUSH ONE (05:36)
[2024-11-13] MEDS: Sennosides/Docusate Sodium 50-8.6 MG Tab PO ONE (11:47)
[2024-11-13] MEDS: Acetaminophen/oxyCODONE 325-5 MG Tab PO PRN (13:48)
[2024-11-13] MEDS ORDERED: Measles, Mumps & Rubella Vaccine 0.5 ML SDV SUBCUT ONE (18:28)
[2024-11-14] MEDS: Measles, Mumps & Rubella Vaccine 0.5 ML SDV SUBCUT ONE (07:22)
== END 2024-11-14 08:55 | disposition home or self-care (01) | DRG 540 ==
LOC: DL.OBCHECK 09:25 → DL.OB 10:20 → OBSVTOIN 18:38 → DL.OB 11-13 09:36
PROVIDERS: ADMIT Family Medicine; ATTEND Family Medicine
PROC: 10D00Z1 Extraction of Products of Conception, Low, Open Approach (ICD-10-PCS; principal; 2024-11-11 18:30)
PROC: 3E0234Z Introduction of Serum, Toxoid and Vaccine into Muscle, Percutaneous Approach (ICD-10-PCS; principal; 2024-11-11 18:30)
DX: O99.824 Streptococcus B carrier state complicating childbirth (principal); O24.424 Gestational diabetes mellitus in childbirth, insulin controlled; O99.02 Anemia complicating childbirth; Z3A.38 38 weeks gestation of pregnancy; Z37.0 Single live birth; Z23 Encounter for immunization; Z90.49 Acquired absence of other specified parts of digestive tract; Z79.899 Other long term (current) drug therapy; Z79.4 Long term (current) use of insulin; Z98.890 Other specified postprocedural states
CPT/HCPCS: 01961; 36415; 59025; 59409; 71045; 71275; 74177; 80053; 82947; 84484; 85027; 86850; 86900; 86901; 90471; 90707; A9270-GY; J1885; J2405; J2540; J2590; J7120; Q9967